=== PATIENT | male | born 1975 | race Caucasian/White ===

== ENCOUNTER 2024-05-13 13:23 | Outpatient (CLI) | payer OTHER, SELFPAY | END 2024-05-13 13:24 | disposition home or self-care (01) | LOC: SLEEP 13:30 | PROVIDERS: Family Provider Family Medicine; PCP Family Medicine; Visit Provider Family Medicine | DX: G47.33 Obstructive sleep apnea (adult) (pediatric) (principal) | CPT/HCPCS: G0399 ==

== ENCOUNTER 2024-10-29 06:26 | Day surgery (SDC) | payer OTHER, SELFPAY ==
[2024-10-29 06:36] VITALS: BP 158/113; PULSE 84; RESP 18; TEMP 36.5; O2SAT 98; BMI 40.0
--- NOTE | 2024-10-29 07:03 | W.PM.OPSUD ---
Surgery/Procedure H&P Update DATE OF PROCEDURE: October 29, 2024 DATE H&P PERFORMED: 11/06/24 H&P UPDATE INFORMATION: I have reviewed H&P completed within last 30 days, I have examined patient prior to procedure and No changes to prior documentation PLANNED PROCEDURE: Operation Date: 10/29/24 07:30 Proposed Procedures p Colonoscopy 24940 G0121 Z12.11(Not Applicable) - Antonio An MD
--- NOTE | 2024-10-29 07:19 | P.ANESASSM_ITS ---
Pre-Anesthetic Assessment Height/Weight: Height 6 ft Weight 295 lb Temp Pulse Resp BP Pulse Ox O2 Del Method 97.7 F 84 18 158/113 98 Room Air 10/29/24 06:36 10/29/24 06:36 10/29/24 06:36 10/29/24 06:36 10/29/24 06:36 10/29/24 06:36 Preop Diagnosis: Screening colonoscopy Operation Date: 10/29/24 07:30 Proposed Procedures p Colonoscopy 46573 [id number] Z12.11(Not Applicable) - Antonio An MD Was Beta Yari taken within 24 hours: N/A Was Clonidine taken within 24 hours: N/A Last intake: Intake Last Liquid Date 10/28/24 Last Liquid Time 23:00 Last Solid Date 10/27/24 Last Solid Time 20:00 Social No alcohol and No tobacco Exam alert, oriented x 3, clear to auscultation bilaterally and regular rate & rhythm Airway Submandibular: within normal limits Cervical ROM: within normal limits Mallampati: Class III Comments: Comments: Small mouth opening, large tongue. Good teeth Anesthetic Plan ASA status: 3 Anesthesia: MAC Other: No prior issues with anesthesia Completed bowel prep History of hypertension on lisinopril. Preop BP 158/113 Patient states that he has a little bit of sinus pressure, denies any fever/chills. Feels this is allergy related METs greater than 4 Plan for MAC anesthesia with local via surgeon Medications/Allergies Home Medications ?Medication ?Instructions ?Recorded ?Confirmed ?Last Taken ?Type lisinopril 10 mg tablet 10 mg PO DAILY 10/07/2410/1510/28/24 21:30 History ropinirole 2 mg tablet 2 mg PO DAILY 10/07/2410/2410/28/24 21:30 History tadalafil 5 mg tablet 5 mg PO DAILY 10/07/2410/2410/28/24 21:30 History venlafaxine 75 mg tablet,extended 75 mg PO DAILY 10/0710/24/24 10/28/24 21:30 History release 24 hr Allergies Allergy/AdvReac Type Severity Reaction Status Date / Time No Known Allergies Allergy Verified 10/24/24 09:34 [facility] Anesthesia Social History Smoking and tobacco/nicotine status: never used tobacco/nicotine
[2024-10-29 07:51] VITALS: BP 112/58; PULSE 90; RESP 19; TEMP 36.5; O2SAT 95
[2024-10-29 08:01] VITALS: BP 103/77; PULSE 96; RESP 18; O2SAT 98
[2024-10-29 08:10] VITALS: BP 121/64; PULSE 77; RESP 18; O2SAT 97
--- NOTE | 2024-10-29 08:25 | ANE.PACU2 ---
Inpatient post-anesthesia follow up: Airway intact: Yes Vital signs: Temperature 97.7 F Pulse Rate 77 Respiratory Rate 18 Blood Pressure 121/64 Pulse Oximetry 97 Oxygen Delivery Me thod Room Air Oxygen Flow Rate 2 Fraction of Inspir ed Oxygen Hydration adequate: Yes Nausea and vomiting: No Pain level: 1 Mental status: Baseline
== END 2024-10-29 08:25 | disposition home or self-care (01) ==
PROVIDERS: PCP Family Medicine; Visit Provider Student in an Organized Health Care Education/Training Program
PROC: 0DJD8ZZ Inspection of Lower Intestinal Tract, Via Natural or Artificial Opening Endoscopic (ICD-10-PCS; CPT 45378; principal; 2024-10-29 07:30)
DX: Z12.11 Encounter for screening for malignant neoplasm of colon (principal); D12.0 Benign neoplasm of cecum; I10 Essential (primary) hypertension
CPT/HCPCS: 45385; 88305; J2704; J7030

== ENCOUNTER → 2024-11-06 15:17 | Outpatient (BNVA) | payer OTHER, SELFPAY | PROVIDERS: PCP Family Medicine; Visit Provider Student in an Organized Health Care Education/Training Program | DX: G56.03 Carpal tunnel syndrome, bilateral upper limbs (principal) | CPT/HCPCS: 73110 ==

== ENCOUNTER 2024-12-19 09:38 | Day surgery (SDC) | payer OTHER, SELFPAY ==
[2024-12-19] VITALS (7 sets, daily range): BP systolic 101–158; BP diastolic 51–90; PULSE 72–84; RESP 16–18; TEMP 36.3–36.4; O2SAT 95–98; BMI 40.6
--- NOTE | 2024-12-19 10:35 | P.ANESASSM_ITS ---
Pre-Anesthetic Assessment Height/Weight: Height 1.83 m Weight 136.078 kg Temp Pulse Resp BP Pulse Ox O2 Del Method 97.5 F L 84 18 158/90 96 Room Air 12/19/24 10:27 12/19/24 10:27 12/19/24 10:27 12/19/24 10:27 12/19/24 10:27 12/19/24 10:13 Operation Date: 12/19/24 11:10 Proposed Procedures p LEFT and RIGHT Carpal Tunnel Release(Bilateral) - Matt Mai DO Familial anesthetic complications: none Was Beta Yari taken within 24 hours: N/A Was Clonidine taken within 24 hours: N/A Last intake: Intake Last Liquid Date 12/18/24 Last Liquid Time 21:00 Last Solid Date 12/18/24 Last Solid Time 17:00 Social No alcohol and No tobacco Exam alert, oriented x 3, clear to auscultation bilaterally and regular rate & rhythm Airway Mallampati: Class IV Dentition: caps CV/HEM Hypertension Metabolic Morbid Obesity Anesthetic Plan ASA status: 3 Anesthesia: MAC Risk of > 500 ml blood loss (7ml/kg in children): No Medications/Allergies Home Medications ?Medication ?Instructions ?Recorded ?Confirmed ?Last Taken ?Type lisinopril 10 mg tablet 10 mg PO DAILY 10/07/2407/0912/18/24 History ropinirole 2 mg tablet 2 mg PO DAILY 10/07/2412/1812/18/24 History tadalafil 5 mg tablet 5 mg PO DAILY 10/07/2412/1912/18/24 History Allergies Allergy/AdvReac Type Severity Reaction Status Date / Time No Known Allergies Allergy Verified 12/19/24 10:11 [facility] Anesthesia Social History Smoking and tobacco/nicotine status: never used tobacco/nicotine
--- NOTE | 2024-12-19 10:41 | W.PM.OPSFHP ---
Same Day Surgery H&P Indication for Procedure/HPI DATE OF PROCEDURE: December 19, 2024 CHIEF COMPLAINT/INDICATIONFOR SURGICAL PROCEDURE: Bilateral carpal tunnel syndrome PREOP DIAGNOSIS: Bilateral carpal tunnel syndrome PLANNED PROCEDURE: Operation Date: 12/19/24 11:10 Proposed Procedures p LEFT and RIGHT Carpal Tunnel Release(Bilateral) - Matt Mai, DO Medications/Allergies* Home Medications ?Medication ?Instructions ?Recorded ?Confirmed ?Type lisinopril 10 mg tablet 10 mg PO DAILY 10/07/24 12/18/24 History ropinirole 2 mg tablet 2 mg PO DAILY 10/07/24 12/18/24 History tadalafil 5 mg tablet 5 mg PO DAILY 10/07/24 12/19/24 History Allergies/Adverse Reactions Allergy/AdvReac Type Severity Reaction Status Date / Time No Known Allergies Allergy Verified 12/19/24 10:11 Pertinent History/Comorbid Conditions* Social History Smoking and tobacco/nicotine status: never used tobacco/nicotine Pertinent Exam Findings alert, oriented x 3, operative site marked and procedure specific exam findings Please refer to detailed orthopedic examination on 11/06/2024 listed below: Bilateral upper extremity examination: Normal C-spine range of motion Negative spurlings Negative Tinel's at the shoulders Negative Tinel's at the elbows over the cubital tunnel Positive Tinel's over carpal tunnel Positive median nerve compression test bilateral wrist Positive Phalen's no atrophy over thenar muscular or intrinsic musculature mild weakness in the right thenar muscles Recommendations Risks and benefits of procedure reviewed and Patient/family agree to proceed Surgery/Procedure today Other Plans: Plan to proceed to the OR today for right carpal tunnel release, left cubital tunnel release. Patient understands the ins and outs procedure the risk benefits complication alternatives surgical nonsurgical treatment options. Understanding risk of surgery patient like to proceed with surgical invention. All questions answered at this time. Coding Level of Care Code Acute Code for Daniella Fwjuancarlos
[2024-12-19] MEDS: acetaminophen 1,000 MG/100 ML PIGGYBACK 400 MG IV (10:48)
[2024-12-19] MEDS: ceFAZolin 2,000 mg SDV 3000 MG IVP (12:28)
[2024-12-19] MEDS: ROPivacaine 0.5% SDV 30 mL 50 MG INJECTION (12:32)
[2024-12-19] MEDS: lidocaine-epi 1% 20 mL INJ 10 ML INJECTION (12:32)
--- NOTE | 2024-12-19 12:46 | P.OP_ITS ---
Operative Report Date of procedure: December 19, 2024 Surgeon: Matt Mai DO Facilities Plant Engineer: Nhan Mai PA-C: PA was necessary for assistance in this case with hand positioning to execute the procedure, retraction and protection of neurovascular structures as well as to assist with wound closure and dressing application. Procedure: Preop Diagnosis: Right Carpal Tunnel Syndrome Left carpal tunnel syndrome Post-op diagnosis: Same Procedure done: 1. Right carpal tunnel release 2. Left carpal tunnel release Surgeon: Matt Mai DO Anesthesia: MAC (Local) Estimated blood loss: 5 mL Tourniquet time 8 minutes?left 12 minutes?right IV fluids: 600 mL Complications: None Findings: See operative report narrative Condition: stable Disposition: same day Brief History: Patient is a pleasant 49 year-old male with right and right carpal tunnel syndrome. Patient has been worked up in the outpatient setting findings and physical examination consistent with this. Patient nerve conduction studies consistent with carpal tunnel syndrome. We detailed out patient's risk benefits complication alternatives with surgical and nonsurgical treatment options. Through shared decision making, patient agrees to proceed with surgical intervention of the right carpal tunnel release and left carpal tunnel release. Patient understands and agrees with current plan. All questions answered. Patient elects to proceed with surgical intervention. Procedure: Patient seen and evaluated in the preoperative holding area. Consent was reviewed and signed with patient. Correct extremity was marked. Patient was seen evaluated by the anesthesia department once cleared for surgery was brought back to the operative suite. Patient was kept on [facility] in supine position all bony prominences were well-padded patient properly secured to the bed. Right and left upper extremity was then placed onto an armboard. A nonsterile tourniquet was applied to the Right and left upper arm. Patient underwent anesthesia per the anesthesia department. Patient's Right and left upper extremity was then prepped and draped in standard orthopedic fashion. Final timeout performed. Patient received appropriate preoperative antibiotics. Under sterile aseptic technique patient received local anesthesia over the preplanned carpal tunnel incision site. Esmarch was used to exsanguinate the left upper extremity and tourniquet was insufflated to 250 mmHg. A standard mini open left carpal tunnel incision was made. Starting distally at Warren's cardinal line in line with the fourth ray extending proximally distal to the wrist crease centered over the carpal tunnel. Sharp scalpel incision was made through skin and subcutaneous tissue. Self-retaining retractor was placed and the palmar fascia was identified. This was then split longitudinally and direct visualization of the transverse carpal ligament was then made. I then utilizing scalpel feathered through the transverse carpal ligament until I entered the floor of the transverse carpal tunnel ligament into the carpal tunnel. Next I switched to dissection scissors and completed my release of the transverse carpal ligament distally with care to protect the recurrent motor branch. I completely released into the palmar fat and until no entrapment was noted distally. Care was made to protect the superficial palmar arch during my distal dissection. Next I utilized a nasal speculum placed on top of the transverse carpal ligament and utilize this to retract the subcutaneous fat and tissue and under direct loupe magnification was able to identify the transverse carpal ligament. Next I then protected the contents of the carpal tunnel and subsequently utilizing dissection scissors under loupe magnification completely released the transverse carpal ligament proximally into the antebrachial fascia. Care was made to protect the palmar cutaneous branch by keeping my scissors curved ulnarly. Once completely released, I then placed my [place] and had appropriate decompression of the carpal tunnel proximally as well as distally. I then inspected the contents of the carpal tunnel which showed an hourglass shape of the median nerve showing its compression. No masses were noted. Tendons appeared healthy. Wound was then thoroughly irrigated. Tourniquet deflated. Hemostasis satisfactory with bipolar electrocautery. I then closed the incision with interrupted nylon stitches. Xeroform 4 x 4's and a bulky soft dressing was applied. Next I proceeded with the right carpal tunnel release. Under sterile aseptic technique patient received local anesthesia over the preplanned carpal tunnel incision site. Esmarch was used to exsanguinate the Right upper extremity and tourniquet was insufflated to 250 mmHg. A standard mini open Right carpal tunnel incision was made. Starting distally at Warren's cardinal line in line with the fourth ray extending proximally distal to the wrist crease centered over the carpal tunnel. Sharp scalpel incision was made through skin and subcutaneous tissue. Self-retaining retractor was placed and the palmar fascia was identified. This was then split longitudinally and direct visualization of the transverse carpal ligament was then made. I then utilizing scalpel feathered through the transverse carpal ligament until I entered the floor of the transverse carpal tunnel ligament into the carpal tunnel. Next I switched to dissection scissors and completed my release of the transverse carpal ligament distally with care to protect the recurrent motor branch. I completely released into the palmar fat and until no entrapment was noted distally. Care was made to protect the superficial palmar arch during my distal dissection. Next I utilized a nasal speculum placed on top of the transverse carpal ligament and utilize this to retract the subcutaneous fat and tissue and under direct loupe magnification was able to identify the transverse carpal ligament. Next I then protected the contents of the carpal tunnel and subsequently utilizing dissection scissors under loupe magnification completely released the transverse carpal ligament proximally into the antebrachial fascia. Care was made to protect the palmar cutaneous branch by keeping my scissors curved ulnarly. Once completely released, I then placed my [place] and had appropriate decompression of the carpal tunnel proximally as well as distally. I then inspected the contents of the carpal tunnel which showed an hourglass shape of the median nerve showing its compression. No masses were noted. Tendons appeared healthy. Wound was then thoroughly irrigated. Tourniquet deflated. Hemostasis satisfactory with bipolar electrocautery. I then closed the incision with interrupted nylon stitches. Xeroform 4 x 4's and a bulky soft dressing was applied. Patient was then awakened from anesthesia and taken to PACU in stable condition. Patient tolerated procedure without complications. Disposition: Patient taken to PACU in stable condition recovering well. Dressing clean dry and intact. Patient will receive appropriate discharge instructions as well as pain medication postoperatively. Patient to follow-up with Ortho in the office in 2 weeks. They understand they may be weightbearing as tolerated to the right hand, limit heavy lifting. Patient should keep in cision clean dry and intact. Patient understands if any questions or concerns may contact the office.
--- NOTE | 2024-12-19 12:50 | W.PM.BPON ---
Date of Procedure: [12/19/2024] Surgeon: [Dr. Sergei DO] Intermodal Owner Operator Truck Driver(s): [Nhan goyal PA-C] Procedure(s) performed: [Right carpal tunnel release Left carpal tunnel release] Findings of the procedure(s): [Right and left carpal tunnel syndrome. Procedure went well as planned] Estimated blood loss: [5 mL] Specimen(s) removed: [N/A] Post-operative diagnosis: [Right and left carpal tunnel syndrome]
--- NOTE | 2024-12-19 12:55 | PM.PACU ---
PACU note Narrative: Patient is a 49-year-old male that just underwent bilateral carpal tunnel syndrome. Patient transferred to PACU in stable condition. Pain is well controlled. Dressing on hand is dry and in place. Patient's fingers are warm and well-perfused. Patient can wiggle fingers. normal cap refill under 2 seconds. Patient has normal elbow range of motion. Unable to assess sensation due to residual localized anesthetic. Exam: awake Disposition: discharged
--- NOTE | 2024-12-19 13:37 | ANE.PACU2 ---
Inpatient post-anesthesia follow up: Airway intact: Yes Vital signs: Temperature 97.4 F Pulse Rate 72 Respiratory Rate 18 Blood Pressure 154/69 Pulse Oximetry 96 Oxygen Delivery Me thod Room Air Oxygen Flow Rate 6 Fraction of Inspir ed Oxygen Hydration adequate: Yes Nausea and vomiting: No Pain level: 1 Mental status: Baseline
== END 2024-12-19 14:17 | disposition home or self-care (01) ==
PROVIDERS: PCP Family Medicine; Visit Provider Student in an Organized Health Care Education/Training Program
PROC: (CPT 64721; principal; 2024-12-19 11:00)
DX: G56.03 Carpal tunnel syndrome, bilateral upper limbs (principal); I10 Essential (primary) hypertension; E66.01 Morbid (severe) obesity due to excess calories; Z68.41 Body mass index [BMI] 40.0-44.9, adult
CPT/HCPCS: 64721; J0131; J0690; J1885; J2250; J2704; J2795; J3010; J7030; J9999